=== PATIENT | male | born 1945 | race Caucasian/White ===

== ENCOUNTER 2018-02-26 15:15 | Emergency (ER) | payer OTHER, MEDICARE ==
--- NOTE | 2018-02-26 15:28 | PDOC ---
History of Present Illness - General Chief Complaint: Nasal Bleeding Stated Complaint: NOSE BLEED Time Seen by Provider: 02/26/18 15:20 History Source: Patient Exam Limitations: No Limitations - History of Present Illness Initial Comments: 02/26/18 15:25 72 y/o male with nose bleed for 1 1/2 hrs. Getting better. No headache, fever or trauma. Patient states that he uses a CPAP machine. Also went to [facility] and told to go to ER. No N/V/d/C. Currently on Aspirin daily. Uses Flonase as well. Past History - Past Medical History Allergies/Adverse Reactions: Allergies Allergy/AdvReac Type Severity Reaction Status Date / Time No Known Allergies Allergy Verified 02/26/18 15:33 Home Medications: Ambulatory Orders Aspirin [Aspirin EC] 81 mg PO HS 02/26/18 Cholecalciferol (Vitamin D3) [Vitamin D3] 1,000 unit PO DAILY 02/26/18 Fluticasone Prop 0.05% Nasal [Flonase -] 1 - 2 spray NS DAILY 02/26/18 Gluc Kohler/Chondro Kohler A/Vit C/Mn [Glucosamine Chondroitin Tab] 1 each PO DAILY Omeprazole 40 mg PO DAILY 02/26/18 Ranitidine [Zantac -] 300 mg PO HS 02/26/18 Rosuvastatin [Crestor -] 5 mg PO HS 02/26/18 Zolpidem Tartrate [Ambien] 5 mg PO HS PRN 02/26/18 Review of Systems - Review of Systems Able to Perform ROS?: Yes Is the patient limited Hungarian proficient: No Constitutional: No: Chills, Fever HEENTM: Yes: Nose Bleeding. No: Blurred Vision, Nose Pain Respiratory: No: Cough, Shortness of Breath Cardiac (ROS): No: Chest Pain All Other Systems: Reviewed and Negative *Physical Exam - Physical Exam General Appearance: Yes: Nourished, Appropriately Dressed. No: Apparent Distress HEENT: positive: EOMI, DEBRA, Symmetrical, Pharynx Normal. negative: Normal ENT Inspection (midl nose bleed right nare, no posterior bleed, turbinates inflamed) Neck: positive: Trachea midline, Normal Thyroid, Supple. negative: Tender, Rigid, Carotid bruit Respiratory/Chest: positive: Lungs Clear, Normal Breath Sounds. negative: Chest Tender, Respiratory Distress Cardiovascular: positive: Regular Rhythm, Regular Rate, S1, S2. negative: Edema , JVD, Murmur Vascular Pulses: Femoral (R): 4+, Femoral (L): 4+, Carotid (R): 4+, Carotid (L) : 4+, Dorsalis-Pedis (R): 4+, Doralis-Pedis (L): 4+ Gastrointestinal/Abdominal: positive: Normal Bowel Sounds, Flat, Soft. negative : Tender, Organomegaly, Pulsatile Mass Lymphatic: negative: Adenopathy, Tenderness, Other Musculoskeletal: positive: Normal Inspection. negative: CVA Tenderness Extremity: positive: Normal Capillary Refill, Normal Inspection, Normal Range of Motion Integumentary: positive: Normal Color, Dry, Warm Neurologic: positive: ortho tech II-XII NML intact, Fully Oriented, Alert, Normal Mood/ Affect, Normal Response, Motor Strength 5/5 ED Treatment Course - ADDITIONAL ORDERS Additional order review: 02/26/18 15:43 Epistaxis has resolved Advised ice, pressure if rebleeds Pt is in agreement with plan *DC/Admit/Observation/Transfer Diagnosis at time of Disposition: Epistaxis - Discharge Dispostion Disposition: HOME Condition at time of disposition: Good Decision to Admit order: No - Referrals Referrals: Juan Hawkins [Primary Care Provider] - - Patient Instructions Printed Discharge Instructions: DI for Nosebleed Additional Instructions: Ice, Tylenol, rest Apply pressure and ice if re-bleeds No heavy lifting or blowing nose Hold Flonase, use Afrin if restarts to bleed No hot liquids or food for next 24 hrs Return to ER if worsen - Post Discharge Activity
[2018-02-26 16:01] VITALS: BP 154/70; PULSE 67; TEMP 97.6; BMI 27.0
== END 2018-02-26 16:06 | disposition home or self-care (01) ==
LOC: FER 15:15
DX: R04.0 Epistaxis (principal)
CPT/HCPCS: 99281-25